=== PATIENT | male | born 1965 | race Caucasian/White ===

== ENCOUNTER 2019-10-06 19:53 | Emergency (ER) | payer OTHER ==
[~2019-10-06] VITALS: Ht 170.2 cm; Wt 90.7 kg
[2019-10-06 20:05] VITALS: BP 117/65
--- NOTE | 2019-10-06 20:14 | NUR ---
PT BIBA BLS TO ER BED 4
--- NOTE | 2019-10-06 20:15 | NUR ---
AMBULATES TO BED 04 FROM [facility] WITH STEADY GAIT, HUNCHED OVER. JULITA NICHOLSON GIVEN REPORT.
--- NOTE | 2019-10-06 20:18 | NUR ---
53 Y/O MALE BIBA BLS C/O UPPER BODY SHAKING X1 WEEKS WORSENING TODAY. PT DENIES SOB/CHEST PAIN. RR EVEN AND UNLABORED. PT STATES HE RAN OUT OF LORAZEPAM X3 WEEKS AGO. PT CALM AND RESTING IN BED. VSS. MEDHX: ANXIETY ALLERGIES: DENIES
--- NOTE | 2019-10-06 20:34 | NUR ---
DR. COLON BEDSIDE EVALUATING PT
[2019-10-06] MEDS ORDERED: LORazepam 0.5 MG TAB PO ONE (20:40)
[2019-10-06 21:11] LABS: BASOPHILS # (AUTO) 0.1 K/uL (0.00-0.22); BASOPHILS % (AUTO) 1.2 % (0.0-2.0); EOSINOPHILS % (AUTO) 0.8 % (0.0-4.0); HEMATOCRIT 39.8 % (36-52); HEMOGLOBIN 13.4 g/dL (12.0-18.0); LYMPHOCYTES # (AUTO) 3.1 K/uL (2.0-11.5); LYMPHOCYTES % (AUTO) 51.3 % (20.5-51.1); MEAN CORPUSCULAR HEMOGLOBIN 36 pg (27-31); MEAN CORPUSCULAR HGB CONC 34 g/dL (33-37); MEAN CORPUSCULAR VOLUME 105.7 fL (80-94); MONOCYTES # (AUTO) 0.7 K/uL (0.8-1.0); MONOCYTES % (AUTO) 11.5 % (1.7-9.3); NEUTROPHILS # (AUTO) 2.2 K/uL (1.8-7.7); NEUTROPHILS % (AUTO) 35.2 % (42.2-75.2); PLATELET COUNT (AUTO) 100 K/uL (140-450); RED BLOOD CELL COUNT(AUTO) 3.76 MIL/uL (4.20-6.10); RED CELL DISTRIBUTION WIDTH 15.8 % (11.6-13.7); WHITE BLOOD COUNT (AUTO) 6.1 K/uL (4.8-10.8)
[2019-10-06 21:32] LABS: ALBUMIN 2.9 g/dL (3.4-5.0); ANION GAP 13.6 (8-16); ASPARTATE AMINOTRANSFERASE 48 U/L (15-37); CARBON DIOXIDE 23.2 mmol/L (21-32); CHLORIDE 106 mmol/L (98-107); CREATININE 0.8 mg/dL (0.7-1.3); GFR ARICAN-AMERICAN 129 mL/min (>90); GLUCOSE 162 mg/dL (74-106); POTASSIUM 3.8 mmol/L (3.5-5.1); SODIUM SERUM 139 mmol/L (136-145); TOTAL BILIRUBIN 1.2 mg/dL (0.0-1.0); UREA NITROGEN, BLOOD 5 mg/dL (7-18)
--- NOTE | 2019-10-06 21:45 | NUR ---
URINE COLLECTED FROM PATIENT AT THIS TIME.
[2019-10-06 22:19] LABS: BARBITURATE, URINE NEG. ng/ml (NEG <=200); BENZODIAZEPINE, URINE NEG. ng/mL (NEG <=200); CANNABINOID, URINE NEG. ng/mL (NEG <=50); COCAINE, URINE NEG. ng/mL (NEG <=300); OPIATE, URINE NEG. ng/mL (NEG <=2000); PHENCYCLIDINE SCREEN,URINE NEG. ng/mL (NEG <=25)
--- NOTE | 2019-10-06 22:21 | NUR ---
PT RESTING WITH EYES CLOSED, VISIBLE RISE AND FALL OF THE CHEST. DENIES "SHAKING" OF UPPER BODY AT THIS TIME. NO C/O PAIN. VSS. WILL CONTINUE TO MONITOR.
[2019-10-06 22:37] LABS: ACETAMINOPHEN < 0.5 ug/ml (10-30); SALICYLATE < 2.8 mg/dL (2.8-20.0)
--- NOTE | 2019-10-06 23:57 | NUR ---
PT RESTING, AROUSABLE TO NAME. RR EVEN AND UNLABORED. PT CALM AND PLEASANT. VSS. WILL CONTINUE TO MONITOR.
--- NOTE | 2019-10-07 02:33 | NUR ---
PT RESTING IN BED, DENIES FEELING ANXIOUS. DENIES PAIN. RR EVEN AND UNLABORED. VSS. WILL CONTINUE TO MONITOR.
--- NOTE | 2019-10-07 04:17 | NUR ---
BED LOCKED AND IN LOW POSITON, X2 SIDE RAILS RAISED. VISIBLE RISE AND FALL OF THE CHEST. PT RESTING W/ EYES CLOSED. NO FURTHER COMPLAINTS AT THIS TIME. VSS. WILL CONTINUE TO MONITOR.
--- NOTE | 2019-10-07 06:09 | NUR ---
PT GIVEN SANDWICH, MILK, AND JUICES. PT BEGAN SHAKING WHEN ROOM WAS ENTERED. PT STATES "I CANNOT GO, I AM STILL SHAKING". VSS. WILL TRY DISCHARGE AGAIN.
--- NOTE | 2019-10-07 06:28 | NUR ---
PT REQUESTED BUS PASS AND PACK OF FOOD. CALLED SIDE STITCHING MACHINE OPERATOR FOR ITEMS.
--- NOTE | 2019-10-07 06:30 | NUR ---
PT RECEIVED INFORMATION ON HOMELESS SHELTERS. PT DECLINED ALL OTHER OFFERS GIVEN TO HIM.
[2019-10-07 06:31] VITALS: BP 136/73
--- NOTE | 2019-10-07 06:31 | NUR ---
Patient discharged with v/s stable. Written and verbal after care instructions given and explained. Patient alert, oriented and verbalized understanding of instructions. Ambulatory with steady gait. All questions addressed prior to discharge. ID band removed. Patient advised to follow up with PMD. Rx of ATIVAN given. Patient educated on indication of medication including possible reaction and side effects. Opportunity to ask questions provided and answered. PT RECEIVED INFORMATION ON HOMELESS SHELTERS, HOMELESS FOOD PACKET, AND BUS PASS UPON REQUEST.
== END 2019-10-07 06:31 | disposition home or self-care (01) ==
LOC: MED 19:53
DX: F10.129 Alcohol abuse with intoxication, unspecified (principal); F41.9 Anxiety disorder, unspecified
CPT/HCPCS: 36415; 80053; 80305; 85025; 99283; G0480; G0482

== ENCOUNTER 2019-10-07 08:18 | Emergency (ER) | payer OTHER ==
[~2019-10-07] VITALS: Ht 170.2 cm; Wt 90.7 kg
[2019-10-07 08:25] VITALS: BP 145/90
--- NOTE | 2019-10-07 08:25 | NUR ---
Patient ambulated to bed 6. RN evaluating patient at bedside.
[2019-10-07] MEDS ORDERED: ONDANSETRON 4 MG ODT PO ONE (08:30)
[2019-10-07] MEDS ORDERED: LORazepam 2 MG/ML VIAL IM ONE (08:30)
--- NOTE | 2019-10-07 08:30 | NUR ---
DR. BAUTISTA EVALUATING PT AT BEDSIDE
--- NOTE | 2019-10-07 08:30 | NUR ---
RETURN VISIT WITH C/O PERSISTENT SHAKINESS AND N/V. PT LEFT [facility] THIS MORNING AROUND 06:30AM AFTER BEING TREATED FOR THE SAME SYMPTOMS AFTER CONSUMING ETOH. PT WAS PRESCRIBED ATIVAN BUT HAS YET TO FILL THE PRESCRIPTION. PT APPEARS SHAKEY & NAUSEOUS. PROVIDED PT WITH A EMESIS BAG. ABDOMEN ROUND,SOFT, NON TENDER. BOWEL SOUNDS PRESENT X4. LBM 10/06/19: REGULAR PER PT. BED IN LOW POSITION, SIDE RAIL UP X1.
--- NOTE | 2019-10-07 09:27 | NUR ---
PT RESTING IN BED, AROUSABLE TO VERBAL STIMULI. PT DENIES NAUSEA/VOMITING AT THIS TIME.
[2019-10-07 09:30] VITALS: BP 141/85
--- NOTE | 2019-10-07 09:54 | NUR ---
Patient discharged with v/s stable. Written and verbal after care instructions given and explained. Patient verbalized understanding. Ambulatory with steady gait. All questions addressed prior to discharge. Advised to follow up with PMD.
== END 2019-10-07 09:54 | disposition home or self-care (01) ==
LOC: MED 08:18
DX: R11.2 Nausea with vomiting, unspecified (principal); F10.20 Alcohol dependence, uncomplicated
CPT/HCPCS: 96372; 99283; J2060; Q0162

== ENCOUNTER 2019-10-07 16:25 | Emergency (ER) | payer OTHER ==
[~2019-10-07] VITALS: Ht 170.2 cm; Wt 90.7 kg
[2019-10-07 16:35] VITALS: BP 158/83
--- NOTE | 2019-10-07 16:37 | NUR ---
TO LOBBY A/W BED AMBULATORY
[2019-10-07] MEDS ORDERED: LORazepam 1 MG TAB PO ONE (16:55)
--- NOTE | 2019-10-07 17:13 | NUR ---
PT TO BED 9 VIA WHEELCHAIR
--- NOTE | 2019-10-07 17:15 | NUR ---
ATIVAN PO ADMINISTERED BY REMIGIO PO
--- NOTE | 2019-10-07 17:16 | NUR ---
RETURN VISIT WITH C/O PERSISTENT SHAKINESS AND N/V. PT HAS BEEN SEEN TWICE WITHIN 48 HOURS FOR S/S AFTER CONSUMING ETOH. PT WAS PRESCRIBED ATIVAN BUT HAS YET TO FILL THE PRESCRIPTION. PT APPEARS SHAKEY & NAUSEOUS. PROVIDED PT WITH A EMESIS BAG. ABDOMEN ROUND,SOFT, NON TENDER. BOWEL SOUNDS PRESENT X4. LBM 10/06/19: REGULAR PER PT. BED IN LOW POSITION, SIDE RAIL UP X1.
--- NOTE | 2019-10-07 17:20 | NUR ---
PO ATIVAN ADMINISTERED
--- NOTE | 2019-10-07 17:21 | NUR ---
PT WAS GIVEN LIST OF SHELTERS, AND SIGNED HOMELESS WAIVER, AND WAS GIVEN MEAL THIS AM DURING LAST VISIT
--- NOTE | 2019-10-07 17:28 | NUR ---
dr hernandez at bedside
--- NOTE | 2019-10-07 17:30 | NUR ---
PT VOMITED ATIVAN
[2019-10-07] MEDS ORDERED: NACL 0.9% 1,000 ML IV ONE (17:40)
[2019-10-07] MEDS ORDERED: LORazepam 2 MG/ML VIAL IVP ONE (17:40)
[2019-10-07] MEDS ORDERED: ONDANSETRON 4 MG/2 ML VIAL IVP ONE (17:40)
--- NOTE | 2019-10-07 18:01 | NUR ---
Dr. Beverly is evaluating the patient at bedside.
--- NOTE | 2019-10-07 18:17 | NUR ---
Dr. Beverly is re-evaluating the patient at bedside.
--- NOTE | 2019-10-07 18:40 | NUR ---
IV INSERTED AND MEDICATIONS ADMINISTERED BY REMIGIO RN, NS RUNNING
--- NOTE | 2019-10-07 19:16 | NUR ---
reports given to michael daniel pt sleeping but arousable to name
[2019-10-07 20:50] VITALS: BP 150/69
--- NOTE | 2019-10-07 20:50 | NUR ---
PT DISCHARGED WITH PAPERWORK. NO RX PROVIDED. EDUCATED PT REGARDING D/C DIAGNOSIS. PT VERBALIZED UNDERSTANDING. PT AT STABLE CONDITION. ABLE TO AMBULATE WITH SLOW STEADY GAIT. ALL QUESTIONS ANSWERED.
== END 2019-10-07 20:50 | disposition home or self-care (01) ==
LOC: MED 16:25
DX: F41.9 Anxiety disorder, unspecified (principal); F10.239 Alcohol dependence with withdrawal, unspecified
CPT/HCPCS: 96361; 96374; 96375; 99283; J2060; J2405